=== PATIENT | female | born 1980 | race Native Hawaiian/Other Pacific Islander ===

== ENCOUNTER 2018-01-29 18:35 | Emergency (ER) | payer BC ==
[~2018-01-29] VITALS: Ht 149.9 cm; Wt 74.8 kg
[2018-01-29 18:54] VITALS: BP 185/68
== END 2018-01-29 20:03 | disposition home or self-care (01) ==
LOC: ER 18:35
DX: H60.92 Unspecified otitis externa, left ear (principal); J02.9 Acute pharyngitis, unspecified; J45.909 Unspecified asthma, uncomplicated; E66.01 Morbid (severe) obesity due to excess calories; Z68.33 Body mass index [BMI] 33.0-33.9, adult